=== PATIENT | female | born 1955 ===

== ENCOUNTER 2017-03-06 07:57 | Outpatient (CLI) | payer OTHER ==
[~2017-03-06 07:57] MED LIST: ACTOS45 MG PO; ATENOLOL25 MG PO; DIOVAN320 MG; HYZAAR 100-121 UDTAB PO; LEVSIN/SL0.125 MG SL; LIPITOR20 MG PO; NOVOLOG; PROTONIX40 MG PO; VITAMIN D350000 UNIT; [UNRECOGNIZED DRUG - OTHER]
== END 2017-03-06 08:23 | disposition home or self-care (01) ==
LOC: MAMO-SONO 07:57
DX: Z12.31 Encounter for screening mammogram for malignant neoplasm of breast (principal)

== ENCOUNTER 2020-09-28 11:24 | Outpatient (CLI) | payer OTHER ==
[2020-10-21] MEDS ORDERED: ADEMPAS2.5 MG PO (11:21)
[2020-10-21] MEDS ORDERED: GABAPENTIN300 M2 PO (11:22)
[2020-10-21] MEDS ORDERED: ZETIA10 MG PO (11:23)
[2020-10-21] MEDS ORDERED: [UNRECOGNIZED DRUG - OTHER] (11:23)
[2020-10-21] MEDS ORDERED: ESTAZOLAM1 MG PO (11:24)
== END 2020-09-28 11:43 | disposition home or self-care (01) ==
LOC: RAD 11:24
PROVIDERS: ATTEND Specialist
DX: R07.89 Other chest pain (principal); Z01.811 Encounter for preprocedural respiratory examination

== ENCOUNTER 2020-09-28 11:27 | Outpatient (CLI) | payer OTHER ==
[2020-10-21] MEDS ORDERED: ADEMPAS2.5 MG PO (11:21)
[2020-10-21] MEDS ORDERED: GABAPENTIN300 M2 PO (11:22)
[2020-10-21] MEDS ORDERED: [UNRECOGNIZED DRUG - OTHER] (11:23)
[2020-10-21] MEDS ORDERED: ZETIA10 MG PO (11:23)
[2020-10-21] MEDS ORDERED: ESTAZOLAM1 MG PO (11:24)
== END 2020-09-28 18:50 | disposition home or self-care (01) ==
LOC: EKG 11:27
PROVIDERS: ATTEND Specialist
DX: I10 Essential (primary) hypertension (principal); Z01.810 Encounter for preprocedural cardiovascular examination

== ENCOUNTER 2020-10-22 05:25 | Day surgery (SDC) | payer OTHER ==
[~2020-10-22 05:25] MED LIST changes: +ADEMPAS2.5 MG PO; +ESTAZOLAM1 MG PO; +GABAPENTIN300 M2 PO; +ZETIA10 MG PO; +[UNRECOGNIZED DRUG - OTHER]
== END 2020-10-22 12:10 | disposition home or self-care (01) ==
LOC: CIR.AMB 05:25
PROVIDERS: ATTEND Specialist
DX: N84.0 Polyp of corpus uteri (principal); Z20.822 Contact with and (suspected) exposure to COVID-19